=== PATIENT | male | born 1960 | race African-American/Black ===

== ENCOUNTER 2019-01-06 14:49 | Emergency (ER) | payer BC ==
[~2019-01-06] VITALS: Ht 170.1 cm; Wt 63.5 kg
--- NOTE | ~2019-01-06 | EKG ---
[place], [place] ELECTROCARDIOGRAM REPORT NAME: YAMINI DAMON UNIT #: ROOM: DOCTOR: MARCO DRAFT REPORT BIRTHDATE: [birth year] [facility] Test Date: 2019-01-06 Test Time: 14:58:57 Pat Name: YAMINI DAMON Department: Patient ID: ELOH- Room: Gender: Sqe: : 1960 Requested By: MAHI ORELLANA Order Number: [id number] Reading MD: Measurements Intervals [place] Rate: 106 P: 73 AL: 196 QRS: 66 QRSD: 86 T: 58 QT: 326 QTc: 433 Interpretive Statements Sinus tachycardia Probable left atrial enlargement No previous ECG available for comparison CM:EKGRPT:ELECTROCARDIOGRAM REPORT [id number] 1200 MAHI LARA DRAFT REPORT MAHI ORELLANA MD
--- NOTE | ~2019-01-06 | EKG ---
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
--- NOTE | ~2019-01-06 | EKG ---
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
[2019-01-06 15:14] LABS: BASO # 0.1 10*3/uL (0.0-0.1); BASO % 0.8 % (0.0-1.0); EOS # 0.5 10*3/uL (0.0-0.4); EOS % 6.4 % (1.0-4.0); HEMOGLOBIN 13.1 g/dl (14.0-18.0); LYMPH # 2.3 10*3/uL (1.3-4.4); LYMPH % 28.9 % (27.0-41.0); MEAN CELL VOLUME 90.5 fl (80.0-94.0); MEAN CORPUSCULAR HGB 29.6 pg (27.0-31.0); MEAN CORPUSCULAR HGB CONC 32.8 g/dl (33.0-37.0); MEAN PLATELET VOLUME 9.6 fl (9.6-12.3); MONO # 0.7 10*3/uL (0.1-1.0); MONO % 9.3 % (3.0-9.0); NEUT # 4.3 10*3/uL (2.3-7.9); NEUT % 54.3 % (47.0-73.0); PLATELET COUNT AUTOMATED 261 10*3/uL (130-400); RED BLOOD COUNT 4.42 10*6/uL (4.50-5.90); RED CELL DISTRI WIDTH 14.5 % (0-14.5)
[2019-01-06 15:27] LABS: ACT PARTIAL THROMBO TIME 25.1 SECONDS (20.0-32.1); INTERNATIONAL NORM RATIO 0.9 (2.0-3.5)
[2019-01-06 15:33] LABS: ALKALINE PHOSPHATASE 104 U/L (45-117); BUN 10 mg/dl (7-24); CHLORIDE 106 mmol/L (98-107); CREATININE 1.03 mg/dL (0.70-1.30); SGOT/AST 33 IU/L (3-35); SGPT/ALT 48 U/L (12-78); SODIUM 139 mmol/L (136-145); TOTAL PROTEIN 7.9 gm/dL (6.4-8.2)
[2019-01-06 15:40] LABS: TROPONIN I < 0.015 ng/ml (<0.045)
[2019-01-06] MEDS ORDERED: PREDNISONE50 MG PO (17:08)
[2019-01-06] MEDS ORDERED: SPIRIVA -- 3018 MCG INH (17:08)
[2019-01-06] MEDS ORDERED: AVPAK AZITHROM250 MG PO (17:08)
[2019-01-06] MEDS ORDERED: PROVENTIL HFA6.7 GM INH (17:08)
[2019-01-06] MEDS ORDERED: SYMB160 INH (17:08)
== END 2019-01-06 17:19 | disposition home or self-care (01) ==
LOC: ED 14:49
PROVIDERS: Emergency Medicine
DX: J44.1 Chronic obstructive pulmonary disease with (acute) exacerbation (principal); Z88.1 Allergy status to other antibiotic agents; Z87.891 Personal history of nicotine dependence

== ENCOUNTER 2019-01-12 10:01 | Inpatient (IN) | payer MEDICAID ==
[~2019-01-12] VITALS: Ht 170.1 cm; Wt 63.5 kg
--- NOTE | ~2019-01-12 | EKG ---
[place], [place] ELECTROCARDIOGRAM REPORT NAME: YAMINI DAMON UNIT #: [id number] ROOM: 506 DOCTOR: MARCO DRAFT REPORT BIRTHDATE: [birth year] [facility] Test Date: 2019-01-14 Test Time: 22:47:09 Pat Name: YAMINI DAMON Department: Room: 506 1 Gender: M Central Processing Tech: Cash Wang : 1960 Requested By: RICHELLE HARDING Order Number: [id number] Reading MD: Uvaldo Teixeira MD Measurements Intervals [place] Rate: 133 P: 80 MA: 154 QRS: 81 QRSD: 87 T: 32 QT: 291 QTc: 433 Interpretive Statements Sinus tachycardia Electronically Signed On 01-15-2019 8:21:47 PDT by Uvaldo Teixeira MD CM:EKGRPT:ELECTROCARDIOGRAM REPORT [id number] RICHELLE BARKLEY DRAFT REPORT RICHELLE HARDING DO
--- NOTE | ~2019-01-12 | EKG ---
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
--- NOTE | ~2019-01-12 | EKG ---
[place], [place] ELECTROCARDIOGRAM REPORT NAME: YAMINI DAMON UNIT #: [id number] ROOM: 506 DOCTOR: MARCO DRAFT REPORT BIRTHDATE: [birth year] [facility] Test Date: 2019-01-13 Test Time: 08:57:33 Pat Name: YAMINI DAMON Department: Room: 506 1 Gender: M Division Leader: : 1960 Requested By: ELPIDIO DUARTE Order Number: [id number] Reading MD: Uvaldo Teixeira MD Measurements Intervals [place] Rate: 113 P: 77 ID: 191 QRS: 68 QRSD: 88 T: 50 QT: 330 QTc: 453 Interpretive Statements Sinus tachycardia Electronically Signed On 01-13-2019 11:24:14 PDT by Uvaldo Teixeira MD CM:EKGRPT:ELECTROCARDIOGRAM REPORT [id number] ELPIDIO AMBROSEANY DRAFT REPORT ELPIDIO DUARTE
--- NOTE | ~2019-01-12 | EKG ---
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
--- NOTE | ~2019-01-12 | EKG ---
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
[~2019-01-12 10:01] MED LIST: AVPAK AZITHROM250 MG PO; PREDNISONE50 MG PO; PROVENTIL HFA6.7 GM INH; SPIRIVA -- 3018 MCG INH; SYMB160 INH
--- NOTE | 2019-01-12 10:08 | NUR ---
PATIENT DENIES ANY WOUNDS AT THIS TIME A&OX4.
[2019-01-12 10:24] LABS: BASO # 0.1 10*3/uL (0.0-0.1); BASO % 0.7 % (0.0-1.0); EOS # 0.7 10*3/uL (0.0-0.4); EOS % 8.4 % (1.0-4.0); HEMATOCRIT 39.4 % (42.0-52.0); LYMPH # 2.5 10*3/uL (1.3-4.4); LYMPH % 28.6 % (27.0-41.0); MEAN CELL VOLUME 90.4 fl (80.0-94.0); MEAN CORPUSCULAR HGB 29.8 pg (27.0-31.0); MEAN PLATELET VOLUME 9.7 fl (9.6-12.3); MONO # 0.8 10*3/uL (0.1-1.0); MONO % 9.5 % (3.0-9.0); NEUT # 4.7 10*3/uL (2.3-7.9); NEUT % 52.5 % (47.0-73.0); PLATELET COUNT AUTOMATED 287 10*3/uL (130-400); RED BLOOD COUNT 4.36 10*6/uL (4.50-5.90); RED CELL DISTRI WIDTH 14.4 % (0-14.5); WHITE BLOOD COUNT 8.9 10*3/uL (4.8-10.8)
[2019-01-12 10:35] LABS: ACT PARTIAL THROMBO TIME 24.8 SECONDS (20.0-32.1)
[2019-01-12 10:38] VITALS: BP 143/87
[2019-01-12 10:46] LABS: ALBUMIN 3.9 gm/dl (3.1-4.5); ALKALINE PHOSPHATASE 106 U/L (45-117); BUN 10 mg/dl (7-24); CHLORIDE 107 mmol/L (98-107); CREATININE 0.89 mg/dL (0.70-1.30); POTASSIUM 3.7 mmol/L (3.5-5.1); SGOT/AST 32 IU/L (3-35); SGPT/ALT 51 U/L (12-78); SODIUM 142 mmol/L (136-145); TOTAL PROTEIN 7.5 gm/dL (6.4-8.2)
[2019-01-12 10:47] LABS: TROPONIN I < 0.015 ng/ml (<0.045)
[2019-01-12 12:08] VITALS: BP 140/99
[2019-01-12 12:25] VITALS: BP 148/80
--- NOTE | 2019-01-12 12:25 | NUR ---
A 58, admitted to , under the services of EMMANUEL Kidd DO with a diagnosis of PNEUMONITIS. Chief complaint is CHEST PAIN. Patient arrived via stretcher from ER. Monitor applied. Initial assessment completed. Vital signs taken and recorded. EMMANUEL KIDD DO notified of admission to the unit. Orders received. See assessment for past medical history, medications and allergies. Patient and/or family oriented to unit. [facility] reviewed. Clothing/patient valuable form completed. ROLY KING
[2019-01-12] MEDS ORDERED: GOOD NEIGHBOR L10 MG PO (14:29)
[2019-01-12] MEDS ORDERED: CYCLOBENZAPRINE10 MG PO (14:29)
[2019-01-12] MEDS ORDERED: DULOXETINE HCL60 MG PO (14:30)
[2019-01-12] MEDS ORDERED: ARTHROTEC50 MG PO (14:30)
[2019-01-12] MEDS ORDERED: ATORVASTATIN CA40 M1 PO (14:30)
[2019-01-12 16:00] VITALS: BP 155/89
[2019-01-12 20:00] VITALS: BP 153/89
--- NOTE | 2019-01-12 21:00 | NUR ---
SLEEPING, AWAKENS EASILY. RESPIRATIONS EASY. LUNGS DIMINISHED WITH COARSE EXP WHEEZES. PULSE OX 96% 2L. CLAIMS N-PROD COUGH. OFFERED AND EDUCATED REGARDING TEDS, DECLINED. IV FLUIDS INFUSING PER ORDER. CALL LIGHT WITHIN REACH. NO VOICED COMPLAINTS.
[2019-01-13] VITALS: BP 118/64; BP 140/82; BP 152/92
--- NOTE | 2019-01-13 | NUR ---
SLEEPING. RESPIRATIONS EASY. VSS. CALL LIGHT WITHIN REACH
--- NOTE | 2019-01-13 06:00 | NUR ---
SLEPT THROUGHOUT NIGHT WITH NO DISTRESS NOTED. RESPIRATIONS EASY. O2 IN USE. CALL LIGHT WITHIN REACH. NO VOICED COMPLAINTS THIS SHIFT
[2019-01-13 07:01] LABS: BUN 11 mg/dl (7-24); CHLORIDE 110 mmol/L (98-107); CHOLESTEROL 120 mg/dL (<200); CREATININE 0.91 mg/dL (0.70-1.30); HDL CHOLESTEROL 91 mg/dl (40-60); LDL CHOLESTEROL 21 mg/dL (9-159); POTASSIUM 4.1 mmol/L (3.5-5.1); SODIUM 143 mmol/L (136-145); TRIGLYCERIDES 39 mg/dl (<150); VLDL CHOLESTEROL 8 mg/dL (6-40)
[2019-01-13 07:02] LABS: BASO % 0.1 % (0.0-1.0); HEMATOCRIT 36.6 % (42.0-52.0); LYMPH # 0.8 10*3/uL (1.3-4.4); LYMPH % 8.9 % (27.0-41.0); MEAN CELL VOLUME 90.8 fl (80.0-94.0); MEAN CORPUSCULAR HGB 29.8 pg (27.0-31.0); MEAN CORPUSCULAR HGB CONC 32.8 g/dl (33.0-37.0); MEAN PLATELET VOLUME 9.9 fl (9.6-12.3); MONO # 0.5 10*3/uL (0.1-1.0); MONO % 4.9 % (3.0-9.0); NEUT # 8.1 10*3/uL (2.3-7.9); NEUT % 85.7 % (47.0-73.0); PLATELET COUNT AUTOMATED 266 10*3/uL (130-400); RED BLOOD COUNT 4.03 10*6/uL (4.50-5.90); RED CELL DISTRI WIDTH 14.5 % (0-14.5); WHITE BLOOD COUNT 9.4 10*3/uL (4.8-10.8)
[2019-01-13 08:00] VITALS: BP 142/80
--- NOTE | 2019-01-13 09:14 | NUR ---
PHYSICAL THERAPY Physical therapy evaluation offered. Patient reports that he is independent in the room and at home. No PT needs at this time. Discharge PT orders. Thank you. Ibis Evans,PT,DPT.
[2019-01-13 09:16] LABS: BUN 11 mg/dl (7-24); CHLORIDE 109 mmol/L (98-107); POTASSIUM 3.9 mmol/L (3.5-5.1); SODIUM 141 mmol/L (136-145)
--- NOTE | 2019-01-13 09:16 | NUR ---
Occupational Therapy referral received and screen completed. Patient is independent in ADls and mobility and did not feel he needed any therapy. Discharge referral per patient's request. Sanjuanita Galarza OTR/l
[2019-01-13 09:17] LABS: TROPONIN I < 0.015 ng/ml (<0.045)
--- NOTE | 2019-01-13 11:57 | NUR ---
NOTIFIED OF HEADACHE AND TYLENOL INEFFECTIVE
[2019-01-13 12:00] VITALS: BP 133/71
--- NOTE | 2019-01-13 13:19 | NUR ---
Professional Driver in to talk to patient. Patient states lives at HOME with NEPHEW. There are NO steps in the home. Physician: NONE HERE HAS A PCP IN [place] Pharmacy: [facility] Home health services: NONE Patient's level of ADLs: INDEPENDENT Patient has working utilities: YES DME: NEBULIZER Follow-up physician's appointment after d/c: [place] FIND ONE [place] IF HE STAYS HERE Does patient want to access PORTAL?: NO Discharge plan PT STATES HE IS FROM [place] AND IS HERE TO STAY WITH HIS NEPHEW FOR A WHILE. STATES HE HAS A PCP IN [place] BUT NONE HERE AND HE IS UNALBE TO GET HIS MEDS HERE DUE TO HIS CARD IS FROM [place]. TOLD HIM TO TALK WITH DOCTOR ABOUT GETTING MEDS HERE ON DISCHARGE. ALSO INFORMED PT RN THAT HE WILL NEED MEDS HERE ON DISCHARGE. WILL CONTINUE TO FOLLOW. STATES HE WILL HAVE A RIDE HOME.. ALLEN KING
[2019-01-13 16:00] VITALS: BP 145/77
[2019-01-13 16:51] LABS: VITAMIN D, 25-HYDROXY 24.2 ng/mL (30-100)
[2019-01-13 20:00] VITALS: BP 141/88
--- NOTE | 2019-01-13 22:00 | NUR ---
PT. USING FLUTTER AND SAID "ITS STARTING TO MOVE THAT MUCOUS OUT."
[2019-01-14] VITALS: BP 138/77
--- NOTE | 2019-01-14 02:00 | NUR ---
PT. SLEEPING NOT ACUTE DISTRESS NOTED AT THIS TIME.
--- NOTE | 2019-01-14 05:10 | NUR ---
SOB TIGHT LABORED I&E WHEEZING. CALLED RESP. TO COME GIVE A TREATMENT. PULSE OX 95% O2 4LNC HR 120'S TO 130'S RESP [address] HERCULES AND TO CALL HER IF THE BREATHING TREATMENT DOES NOT WORK CALL HER BACK.
--- NOTE | 2019-01-14 05:25 | NUR ---
AEROSAL TREATMENT DONE AND PT. STARTING TO HAVE SOME RELIEVE OF SOB PER PT.
--- NOTE | 2019-01-14 05:40 | NUR ---
PT. STILL HAVING IMPROVMENT OF SOB PER PT. WILL CONT. TO MONITOR.
--- NOTE | 2019-01-14 06:00 | NUR ---
PT. CONTINUING TO IMPROVE WITH MINIMAL SOB AT THIS TIME. WILL CONTINUE TO MONITOR.
--- NOTE | 2019-01-14 06:15 | NUR ---
PT. SOB HAS DIMINISHED BUT STILL HAS SLIGHT SOB. TIGHTNESS HAS DIMINISHED PER PT.
[2019-01-14 06:25] LABS: BASO % 0.1 % (0.0-1.0); HEMATOCRIT 35.1 % (42.0-52.0); HEMOGLOBIN 11.5 g/dl (14.0-18.0); LYMPH % 6.3 % (27.0-41.0); MEAN CELL VOLUME 90.2 fl (80.0-94.0); MEAN CORPUSCULAR HGB 29.6 pg (27.0-31.0); MEAN CORPUSCULAR HGB CONC 32.8 g/dl (33.0-37.0); MEAN PLATELET VOLUME 9.9 fl (9.6-12.3); MONO % 6.5 % (3.0-9.0); NEUT # 13.4 10*3/uL (2.3-7.9); NEUT % 86.4 % (47.0-73.0); PLATELET COUNT AUTOMATED 269 10*3/uL (130-400); RED BLOOD COUNT 3.89 10*6/uL (4.50-5.90); RED CELL DISTRI WIDTH 14.8 % (0-14.5); WHITE BLOOD COUNT 15.5 10*3/uL (4.8-10.8)
[2019-01-14 06:35] LABS: BUN 12 mg/dl (7-24); CHLORIDE 108 mmol/L (98-107); POTASSIUM 4.3 mmol/L (3.5-5.1); SODIUM 139 mmol/L (136-145)
--- NOTE | 2019-01-14 06:38 | NUR ---
DR. HERCULES CALLED AND UPDATED ON PT. CONDITION. SOB AND TIGHTNESS IN CHEST HAVE GONE PER PT. HE WAS RESTING EASY AT THIS TIME.
[2019-01-14 08:00] VITALS: BP 142/80
[2019-01-14 12:00] VITALS: BP 151/97
[2019-01-14 16:00] VITALS: BP 131/99
--- NOTE | 2019-01-14 16:00 | NUR ---
PATIENT IS DISCHARGED, JUST WAITING ON HIS RIDE.
--- NOTE | 2019-01-14 16:09 | NUR ---
TYLENOL 650MG GIVEN PER PATIENT REQUEST FOR A HEADACHE RATING A 7/10.
--- NOTE | 2019-01-14 17:20 | NUR ---
PATIENT WAS UP WALKING AROUND. [facility] ROOM CALLED TO SAY HEART RATE WAS IN THE 150S. PATIENT STATES HE IS HAVING DIFFICULTY BREATHING. POX IS 93% ON ROOM AIR. PATIENT IS COUGHING AND AND SOUNDS REALLY TIGHT. RESPIRATORY PAGED FOR A PRN BREATHING TREATMENT.
--- NOTE | 2019-01-14 19:00 | NUR ---
ARRIVED ON SHIFT, INTRODUCED TO PATIENT, BEDSIDE REPORT RECEIVED, WHITE BOARD UPDATED NO NEEDS VOICED AT THIS TIME.
--- NOTE | 2019-01-14 19:34 | NUR ---
24 HR chart check completed.
[2019-01-14 20:00] VITALS: BP 143/75
--- NOTE | 2019-01-14 22:31 | NUR ---
CALL RECEIVED FROM MONITOR ROOM PATIENT HEART RATE 150 AND LEADS WHERE JUNKY, I WAS ENROUTE TO PATIENT ROOM, WHEN NURSE IN ROOM ADVISED ME TO CALL HOSPITALIST, DR. SWAIN WAS CALLED, ORDER RECEIVED FOR STAT EKG.
[2019-01-15] VITALS: BP 139/90
--- NOTE | 2019-01-15 04:38 | NUR ---
Patient sleeping. Respirations relaxed and easy. Siderails up 2. [place] on. ZHANG BURNETT
[2019-01-15 12:00] VITALS: BP 153/92
[2019-01-15 16:00] VITALS: BP 146/92
--- NOTE | 2019-01-15 16:45 | NUR ---
Notified hospitalist that pt's b/p 146/92. no further orders at this time.
--- NOTE | 2019-01-15 19:17 | NUR ---
ARRIVED ON SHIFT, INTRODUCED TO PATIENT, BEDSIDE REPORT RECEIVED, WHITE BOARD UPDATED NO NEEDS VOICED AT THIS TIME.
--- NOTE | 2019-01-15 19:18 | NUR ---
24 HR chart check completed.
[2019-01-15 20:00] VITALS: BP 152/90
[2019-01-16] VITALS: BP 138/82
--- NOTE | 2019-01-16 04:00 | NUR ---
Patient sleeping. Respirations relaxed and easy. Siderails up X2. [place] on. ZHANG BURNETT
[2019-01-16 06:18] LABS: HEMATOCRIT 37.7 % (42.0-52.0); HEMOGLOBIN 12.3 g/dl (14.0-18.0); MEAN CELL VOLUME 90.4 fl (80.0-94.0); MEAN CORPUSCULAR HGB 29.5 pg (27.0-31.0); MEAN CORPUSCULAR HGB CONC 32.6 g/dl (33.0-37.0); MEAN PLATELET VOLUME 9.9 fl (9.6-12.3); PLATELET COUNT AUTOMATED 315 10*3/uL (130-400); RED BLOOD COUNT 4.17 10*6/uL (4.50-5.90); RED CELL DISTRI WIDTH 14.8 % (0-14.5); WHITE BLOOD COUNT 15.7 10*3/uL (4.8-10.8)
[2019-01-16 06:43] LABS: BUN 16 mg/dl (7-24); CHLORIDE 106 mmol/L (98-107); CREATININE 0.83 mg/dL (0.70-1.30); POTASSIUM 4.3 mmol/L (3.5-5.1); SODIUM 141 mmol/L (136-145)
[2019-01-16 08:17] LABS: TOTAL CELLS COUNTED 100 #CELLS
[2019-01-16 08:18] LABS: PLATELET SUFFICIENCY NORMAL (NORMAL); SCHISTOCYTES FEW; TARGET CELLS FEW
[2019-01-16 08:19] LABS: POLYCHROMASIA SLIGHT
[2019-01-16] MEDS ORDERED: LEVAQUIN500 M2 PO (10:01)
[2019-01-16] MEDS ORDERED: MUCINEX ER600 MG PO (10:01)
[2019-01-16] MEDS ORDERED: PREDNISONE10 MG PO (10:01)
--- NOTE | 2019-01-16 11:49 | NUR ---
Discharge instructions reviewed with patient/family. Patient receptive and verbalizes understanding. Follow-up care arranged. Written instructions given to patient/family. MARYLU CARDOZA
== END 2019-01-16 11:49 | disposition home or self-care (01) | DRG 871 ==
LOC: ED 10:01 → 5E 11:09 → EDHOLD 11:09 → 5E 11:49
PROVIDERS: Family Medicine; Internal Medicine; ADMIT Emergency Medicine
DX: A41.9 Sepsis, unspecified organism (principal); J18.9 Pneumonia, unspecified organism; J96.01 Acute respiratory failure with hypoxia; J44.1 Chronic obstructive pulmonary disease with (acute) exacerbation; J44.0 Chronic obstructive pulmonary disease with (acute) lower respiratory infection; E78.5 Hyperlipidemia, unspecified; I10 Essential (primary) hypertension; R07.9 Chest pain, unspecified; E83.41 Hypermagnesemia; E87.8 Other disorders of electrolyte and fluid balance, not elsewhere classified; F17.210 Nicotine dependence, cigarettes, uncomplicated; D64.9 Anemia, unspecified; Z71.6 Tobacco abuse counseling; Z88.1 Allergy status to other antibiotic agents; Z82.3 Family history of stroke; Z82.49 Family history of ischemic heart disease and other diseases of the circulatory system; Z79.899 Other long term (current) drug therapy

== ENCOUNTER 2019-02-28 15:16 | Emergency (ER) | payer MEDICAID ==
[~2019-02-28] VITALS: Ht 170.1 cm; Wt 65.8 kg
[~2019-02-28 15:16] MED LIST changes: +ARTHROTEC50 MG PO; +ATORVASTATIN CA40 M1 PO; +CYCLOBENZAPRINE10 MG PO; +DULOXETINE HCL60 MG PO; +GOOD NEIGHBOR L10 MG PO; +LEVAQUIN500 M2 PO; +MUCINEX ER600 MG PO; +PREDNISONE10 MG PO
[2019-02-28 16:00] LABS: BASO % 0.5 % (0.0-1.0); EOS # 0.3 10*3/uL (0.0-0.4); EOS % 3.2 % (1.0-4.0); HEMATOCRIT 36.3 % (42.0-52.0); HEMOGLOBIN 12.2 g/dl (14.0-18.0); LYMPH # 1.7 10*3/uL (1.3-4.4); LYMPH % 20.5 % (27.0-41.0); MEAN CELL VOLUME 88.1 fl (80.0-94.0); MEAN CORPUSCULAR HGB 29.6 pg (27.0-31.0); MEAN CORPUSCULAR HGB CONC 33.6 g/dl (33.0-37.0); MEAN PLATELET VOLUME 9.3 fl (9.6-12.3); MONO # 0.9 10*3/uL (0.1-1.0); MONO % 10.8 % (3.0-9.0); NEUT # 5.5 10*3/uL (2.3-7.9); NEUT % 64.9 % (47.0-73.0); PLATELET COUNT AUTOMATED 263 10*3/uL (130-400); RED BLOOD COUNT 4.12 10*6/uL (4.50-5.90); RED CELL DISTRI WIDTH 14.3 % (0-14.5); WHITE BLOOD COUNT 8.5 10*3/uL (4.8-10.8)
[2019-02-28 16:09] LABS: ALBUMIN 3.6 gm/dl (3.1-4.5); ALKALINE PHOSPHATASE 99 U/L (45-117); BUN 8 mg/dl (7-24); CHLORIDE 108 mmol/L (98-107); LIPASE 128 U/L (73-393); POTASSIUM 3.4 mmol/L (3.5-5.1); SGOT/AST 24 IU/L (3-35); SGPT/ALT 31 U/L (12-78); SODIUM 141 mmol/L (136-145); TROPONIN I < 0.015 ng/ml (<0.045)
[2019-02-28 16:12] LABS: ACT PARTIAL THROMBO TIME 24.8 SECONDS (20.0-32.1); INTERNATIONAL NORM RATIO 0.9 (2.0-3.5)
[2019-02-28] MEDS ORDERED: AUGMENTIN 875-875 MG PO (17:07)
[2019-02-28] MEDS ORDERED: PROVENTIL HFA6.7 GM INH (17:07)
[2019-02-28] MEDS ORDERED: PREDNISONE50 MG PO (17:07)
== END 2019-02-28 17:40 | disposition home or self-care (01) ==
LOC: ED 15:16
PROVIDERS: Nurse Practitioner Family
DX: J45.901 Unspecified asthma with (acute) exacerbation (principal); J44.9 Chronic obstructive pulmonary disease, unspecified; I10 Essential (primary) hypertension; E78.5 Hyperlipidemia, unspecified; E78.00 Pure hypercholesterolemia, unspecified; F17.210 Nicotine dependence, cigarettes, uncomplicated; Z79.899 Other long term (current) drug therapy; Z88.8 Allergy status to other drugs, medicaments and biological substances; Z88.1 Allergy status to other antibiotic agents

== ENCOUNTER 2019-11-24 14:14 | Emergency (ER) | payer MEDICAID ==
[~2019-11-24 14:14] MED LIST changes: +AUGMENTIN 875-875 MG PO
[2019-11-24 14:30] LABS: BASO # 0.1 10*3/uL (0.0-0.1); BASO % 0.6 % (0.0-1.0); EOS # 0.2 10*3/uL (0.0-0.4); EOS % 2.3 % (1.0-4.0); HEMATOCRIT 35.3 % (42.0-52.0); LYMPH # 2.2 10*3/uL (1.3-4.4); LYMPH % 27.8 % (27.0-41.0); MEAN CELL VOLUME 86.3 fl (80.0-94.0); MEAN CORPUSCULAR HGB 29.1 pg (27.0-31.0); MEAN CORPUSCULAR HGB CONC 33.7 g/dl (33.0-37.0); MEAN PLATELET VOLUME 9.6 fl (9.6-12.3); MONO # 0.8 10*3/uL (0.1-1.0); MONO % 9.8 % (3.0-9.0); NEUT # 4.6 10*3/uL (2.3-7.9); NEUT % 59.2 % (47.0-73.0); PLATELET COUNT AUTOMATED 321 10*3/uL (130-400); RED BLOOD COUNT 4.09 10*6/uL (4.50-5.90); RED CELL DISTRI WIDTH 14.6 % (0-14.5); WHITE BLOOD COUNT 7.8 10*3/uL (4.8-10.8)
[2019-11-24 14:41] LABS: ACT PARTIAL THROMBO TIME 26.1 SECONDS (20.0-32.1); INTERNATIONAL NORM RATIO 0.9 (2.0-3.5)
[2019-11-24 14:46] LABS: ALBUMIN 3.4 gm/dl (3.1-4.5); ALKALINE PHOSPHATASE 140 U/L (45-117); BUN 9 mg/dl (7-24); CHLORIDE 109 mmol/L (98-107); CREATININE 0.94 mg/dL (0.70-1.30); POTASSIUM 3.8 mmol/L (3.5-5.1); SGOT/AST 38 IU/L (3-35); SGPT/ALT 45 U/L (12-78); SODIUM 140 mmol/L (136-145)
[2019-11-24 14:49] LABS: TROPONIN I < 0.015 ng/ml (<0.045)
== END 2019-11-24 18:15 | disposition home or self-care (01) ==
LOC: ED 14:14
PROVIDERS: Emergency Medicine
DX: R07.9 Chest pain, unspecified (principal); Z79.899 Other long term (current) drug therapy